=== PATIENT | female | born 1965 | race American Indian/Alaskan Native ===

== ENCOUNTER 2020-01-04 17:17 | Observation (INO) | payer OTHER ==
--- NOTE | 2020-01-04 17:41 | Event Note ---
ED Screening Note ED Screening Note: this morning states she "felt a kick" in her chest states it feels sore mild SOB with walking up the steps +nausea no vomiting no leg swelling took full dose aspirin no recent travel or recent surgery no hormone no hx of cancer PMHx MVP, HLD, prediabetes never smoker rare ETOH use This initial assessment/diagnostic orders/clinical plan/treatment(s) is/are subject to change based on patients health status, clinical progression and re- assessment by fellow clinical providers in the ED. Further treatment and workup at subsequent clinical providers discretion. Patient/guardian urged not to elope from the ED as their condition may be serious if not clinically assessed and managed. Initial orders include: CP protocol
--- NOTE | 2020-01-04 18:07 | XRay Report ---
CHEST 2 VIEWS INDICATION: MAIN: CP SINCE 7 AM THIS MORNING PER PATIENT. COMPARISON: FINDINGS: Support devices: None. Heart: Within normal limits. Lungs: No acute air space or interstitial disease. Pleura: No significant pleural effusion. No pneumothorax. Additional findings: None. IMPRESSION: 1. No acute findings. Signer Name: Semaj Gil MD Signed: 01/04/2020 6:03 PM Workstation Name: [id number]
[2020-01-04 19:11] LABS: Basophils # (Auto) 0.1 K/mm3 (0.0-0.1); Basophils % (Auto) 1.2 % (0.0-1.8); Eosinophils % (Auto) 0.7 % (0.0-4.3); Hemoglobin 12.9 gm/dl (10.1-14.3); Lymphocytes # (Auto) 2.5 K/mm3 (1.2-5.4); Lymphocytes % (Auto) 39.6 % (13.4-35.0); Mean Corpuscular HGB Conc 33 % (30-34); Mean Corpuscular Volume 81 fl (79-97); Monocytes # (Auto) 0.6 K/mm3 (0.0-0.8); Monocytes % (Auto) 9.2 % (0.0-7.3); Platelet Count 265 K/mm3 (140-440); Red Blood Count 4.83 M/mm3 (3.65-5.03); Red Cell Distribution Width 13.9 % (13.2-15.2)
[2020-01-04 19:35] LABS: Alanine Aminotransferase 22 units/L (7-56); Albumin 4.8 g/dL (3.9-5); BUN/Creatinine Ratio 19; Blood Urea Nitrogen 15 mg/dL (7-17); Calcium 9.8 mg/dL (8.4-10.2); Hemolysis Index 11
--- NOTE | 2020-01-04 19:56 | Emergency Department Report ---
ED Chest Pain HPI - General Chief Complaint: Chest Pain Stated Complaint: CP Time Seen by Provider: 01/04/20 17:39 Source: patient, RN notes reviewed, old records reviewed Mode of arrival: Ambulatory Limitations: No Limitations - History of Present Illness Initial Comments: During the entire history and physical examination, I am transplant case manager and escorted by nurse Flavia Rosa Primary care doctor: Dr. Borja, [facility]: [place] [facility] Past medical history: GERD, mitral valve prolapse, hypertension The patient is a 54-year-old female. I have evaluated this patient in the past. Patient presents to the ER today with a primary complaint of chest wall pain. It started at 7:00 in the morning. It started all of a sudden, "like I was kicked in the chest." Prior to this, she denies inciting event. Patient in dicates that prior to this, she was in her usual state of health. She associates nausea, exertional shortness of breath, nontraumatic left posterior tricep pain. All of this is new. The pain has been intermittent since 7:00 in the morning. No recent cardiac stress test or cardiac catheterization that she is aware of. She took aspirin today, and recently. Very strong family history of myocardial infarction, her mother, father, and brother all of myocardial infarction's, at the age of 55, 57, and 53 respectively. There is no complaint of headache, neck pain, abdominal pain, leg pain or leg swelling, or urinary symptoms. She denies DVT and pulmonary embolism risk factors. MD Complaint: chest pain -: Sudden Onset: during rest Pain Location: substernal Pain Radiation: other Quality: aching Consistency: intermittent Improves With: rest Worsens With: exertion, palpation re: nausea, dyspnea Aspirin use within the Past 7 Days: (1) Yes - Related Data On Oral Contraceptives: No Home Medications Medication Instructions Recorded Confirmed Last Taken Aspirin [Aspirin BABY CHEW TAB] 81 mg PO QDAY 07/16/15 07/16/15 12/27/16 Lovastatin [Altoprev] 20 mg PO QAM 07/16/15 07/16/15 12/27/16 Omeprazole (Nf) [PriLOSEC (Nf)] 20 mg PO DAILY 12/29/16 12/29/16 12/27/16 Previous Rx's Medication Instructions Recorded Last Taken Type atenoloL [Tenormin] 25 mg PO DAILY #30 tab 08/22/13 12/29/16 Rx traMADoL [Ultram] 50 mg PO Q6HR PRN #12 tablet 04/22/16 Unknown Rx Diclofenac Sodium [Voltaren] 100 gm TP Q6H #1 gel..gram. 07/19/18 Unknown Rx Allergies Allergy/AdvReac Type Severity Reaction Status Date / Time Penicillins Allergy Hives Verified 07/16/15 18:30 Heart Score - HEART Score History: Moderately suspicious EKG: Non-specific Age: 45-65 Risk factors: > 3 risk factors or hx of atherosclerotic disease Troponin: < normal limit HEART Score: 5 - Critical Actions Critical Actions: 4-6 pts:12-16.6% risk of adverse cardiac event. Should be admitted ED Review of Systems ROS: Stated complaint: CP Other details as noted in HPI Constitutional: malaise. denies: fever Eyes: denies: eye discharge ENT: denies: congestion Respiratory: shortness of breath Cardiovascular: chest pain Gastrointestinal: vomiting Genitourinary: denies: dysuria Musculoskeletal: myalgia Skin: denies: lesions Neurological: weakness Psychiatric: as per HPI Hematological/Lymphatic: as per HPI ED Past Medical Hx - Past Medical History Previous Medical History?: Yes Hx Hypertension: (high cholesterol) Hx GERD: Yes Hx Kidney Stones: Yes Additional medical history: MVP, high cholestrol - Surgical History Additional Surgical History: Hysterectomy. C section - Social History Smoking Status: Never Smoker Substance Use Type: None - Medications Home Medications: Home Medications Medication Instructions Recorded Confirmed Last Taken Type atenoloL [Tenormin] 25 mg PO DAILY #30 tab 08/22/13 07/16/15 12/29/16 Rx Aspirin [Aspirin BABY CHEW TAB] 81 mg PO QDAY 07/16/15 07/16/15 12/27/16 History Lovastatin [Altoprev] 20 mg PO QAM 07/16/15 07/16/15 12/27/16 History traMADoL [Ultram] 50 mg PO Q6HR PRN #12 tablet 04/22/16 Unknown Rx Omeprazole (Nf) [PriLOSEC (Nf)] 20 mg PO DAILY 12/29/16 12/29/16 12/27/16 His tory Diclofenac Sodium [Voltaren] 100 gm TP Q6H #1 gel..gram. 07/19/18 Unknown Rx ED Physical Exam - General Limitations: No Limitations General appearance: alert, in no apparent distress - Head Head exam: Present: atraumatic, normocephalic - Eye Eye exam: Present: normal appearance, EOMI. Absent: nystagmus - ENT ENT exam: Present: normal exam, normal orophraynx, mucous membranes moist, normal external ear exam - Neck Neck exam: Present: normal inspection, full ROM. Absent: tenderness, meningismus - Respiratory Respiratory exam: Present: normal lung sounds bilaterally, chest wall tenderness. Absent: respiratory distress, wheezes, rales, rhonchi, stridor - Cardiovascular Cardiovascular Exam: Present: normal rhythm, bradycardia, normal heart sounds. Absent: tachycardia, irregular rhythm, systolic murmur, diastolic murmur, rubs, gallop - GI/Abdominal GI/Abdominal exam: Present: soft. Absent: distended, tenderness, guarding, rebound, rigid, pulsatile mass - Extremities Exam Extremities exam: Present: normal inspection, full ROM, other (2+ pulses noted in the bilateral upper and lower extremities. There is no palpable cord. negative Homans sign. Muscular compartments are soft. The pelvis is stable.). Absent: pedal edema, calf tenderness - Back Exam Back exam: Present: normal inspection. Absent: tenderness, CVA tenderness (R), CVA tenderness (L), paraspinal tenderness, vertebral tenderness - Neurological Exam Neurological exam: Present: alert, normal gait, other (There is no facial droop. The tongue is midline. Extraocular movements are intact bilaterally. There is 5 out of 5 strength in bilateral upper and lower extremities. Sensation is intact to light touch bilateral upper and lower extremities. ). Absent: motor sensory deficit - Psychiatric Psychiatric exam: Present: anxious - Skin Skin exam: Present: warm, dry, intact, normal color. Absent: rash ED Course Vital Signs 01/04/20 01/04/20 01/04/20 17:20 17:40 20:30 Temperature 98.1 F 98 F Pulse Rate 59 L 59 L 54 L Respiratory 18 18 12 Rate Blood Pressure 136/69 143/59 Blood Pressure 136/69 [Left] O2 Sat by Pulse 100 100 100 Oximetry 01/04/20 20:45 Temperature Pulse Rate 57 L Respiratory 13 Rate Blood Pressure 137/68 Blood Pressure [Left] O2 Sat by Pulse 98 Oximetry - Reevaluation(s) Reevaluation #1: 01/04/20 20:54 Differential diagnosis, including but not limited to: Costochondritis, acute coronary syndrome, GERD, gastritis, hiatal hernia, acute coronary syndrome, pulmonary embolism Assessment and plan: 54-year-old female with exquisitely reproducible chest wall pain, however, multiple vascular risk factors, including hypertension, high cholesterol, and very strong family history. She cannot recall a dedicated cardiac risk ratification test performed recently, although she does indicate that in 2019, she had "some kind of test done." We will treat her symptoms, obtain d-dimer, repeat EKG, and reassess. We will likely admit the patient to the medical service for an accelerated cardiac risk stratification, given very strong family history. Reevaluation #2: 01/04/20 21:43 Patient feels improved. Repeat EKG unchanged. Troponin negative. X2. D-dimer negative. Given moderate risk as per heart score, patient meets criteria for hospitalization for accelerated cardiac risk ratification. Discussed this with patient and family, who verbalized understanding. They are amenable to this plan of care. We will discussed with her primary medical or surgical instrument maker. We will admit to the medical service. Reevaluation #3: 01/04/20 22:00 Dr Doris Stone to admit - Consultations Consultation #1: 01/04/20 21:59 Discussed with covering cardiology, Dr. Doris Mcgill, who agrees with plan of care, indicates his group can see the patient in the morning in consultation. HAMMAD score - Hammad Score Age > 65: (0) No Aspirin use within the Past 7 Days: (1) Yes 3 or more CAD Risk Factors: (1) Yes 2 or more Angina events in past 24 hrs: (0) No Known CAD with more than 50% Stenosis: (0) No Elevated Cardiac Markers: (0) No ST Deviation Greater than 0.5mm: (0) No HAMMAD Score: 2 ED Medical Decision Making - Lab Data Result diagrams: 01/04/20 18:48 01/04/20 18:48 Vital Signs 01/04/20 01/04/20 01/04/20 17:20 17:40 20:30 Temperature 98.1 F 98 F Pulse Rate 59 L 59 L 54 L Respiratory 18 18 12 Rate Blood Pressure 136/69 143/59 Blood Pressure 136/69 [Left] O2 Sat by Pulse 100 100 100 Oximetry 01/04/20 20:45 Temperature Pulse Rate 57 L Respiratory 13 Rate Blood Pressure 137/68 Blood Pressure [Left] O2 Sat by Pulse 98 Oximetry Lab Results 01/04/20 01/04/20 Range/Units 18:48 18:48 WBC 6.2 (4.5-11.0) K/mm3 RBC 4.83 (3.65-5.03) M/mm3 Hgb 12.9 (10.1-14.3) gm/dl Hct 39.0 (30.3-42.9) % MCV 81 (79-97) fl MCH 27 L (28-32) pg MCHC 33 (30-34) % RDW 13.9 (13.2-15.2) % Plt Count 265 (140-440) K/mm3 Lymph % (Auto) 39.6 H (13.4-35.0) % [place] % (Auto) 9.2 H (0.0-7.3) % Eos % (Auto) 0.7 (0.0-4.3) % Baso % (Auto) 1.2 (0.0-1.8) % Lymph # 2.5 (1.2-5.4) K/mm3 [place] # 0.6 (0.0-0.8) K/mm3 Eos # 0.0 (0.0-0.4) K/mm3 Baso # 0.1 (0.0-0.1) K/mm3 Seg Neutrophils % 49.3 (40.0-70.0) % Seg Neutrophils # 3.1 (1.8-7.7) K/mm3 Sodium 147 H (137-145) mmol/L Potassium 3.7 (3.6-5.0) mmol/L Chloride 106.0 (98-107) mmol/L Carbon Dioxide 26 (22-30) mmol/L Anion Gap 19 mmol/L BUN 15 (7-17) mg/dL Creatinine 0.8 (0.7-1.2) mg/dL Estimated GFR > 60 ml/min BUN/Creatinine Ratio 19 % Glucose 86 (65-100) mg/dL Calcium 9.8 (8.4-10.2) mg/dL Total Bilirubin 0.30 (0.1-1.2) mg/dL AST 21 (5-40) units/L ALT 22 (7-56) units/L Alkaline Phosphatase 97 (35-129) units/L Troponin T < 0.010 (0.00-0.029) ng/mL NT-Pro-B Natriuret Pep 62.95 (0-900) pg/mL Total Protein 7.5 (6.3-8.2) g/dL Albumin 4.8 (3.9-5) g/dL Albumin/Globulin Ratio 1.8 % - EKG Data -: EKG Interpreted by Me - EKG Data 01/04/20 20:53 EKG #1 shows sinus rhythm, bradycardia, 58 bpm, normal axis, QTC within normal limits, left ventricular hypertrophy, nonspecific ST abnormality lead II, III, aVF, V4, V5 and V6, there is also an inverted T wave in V3. Appears to be fairly similar to prior EKG from 07/2015 - Radiology Data Radiology results: report reviewed, image reviewed X-ray of the chest is negative for acute disease Critical care attestation.: If time is entered above; I have spent that time in minutes in the direct care of this critically ill patient, excluding procedure time. ED Disposition Clinical Impression: Acute chest pain, Dyspnea Disposition: OP ADMIT IP TO THIS HOSP Is pt being admited?: Yes Does the pt Need Aspirin: Yes Condition: Stable Instructions: Chest Pain (ED) Referrals: DENA SINGLETON MD [Primary Care Provider] - 3-5 Days
[2020-01-04] MEDS ORDERED: FAMOTIDINE 20 MG/2 ML INJ IV ONE (20:11)
[2020-01-04] MEDS ORDERED: KETOROLAC 30 MG/1 ML INJ IV ONE (20:11)
[2020-01-04] MEDS ORDERED: ACETAMINOPHEN 500 MG TAB PO ONE (20:12)
[2020-01-04] MEDS ORDERED: ASPIRIN 81 MG TAB CHEW PO ONE (21:45)
[2020-01-04] MEDS ORDERED: MORPHINE 4 MG/1 ML INJ IV PRN (22:55)
[2020-01-04] MEDS ORDERED: MORPHINE 2 MG/1 ML INJ IV PRN (22:55)
[2020-01-04] MEDS ORDERED: MAGNESIUM HYDROXIDE (MOM) ORAL LIQD UDC PO PRN (22:55)
[2020-01-04] MEDS ORDERED: ONDANSETRON 4 MG/2 ML INJ IV PRN (22:55)
[2020-01-04] MEDS ORDERED: ACETAMINOPHEN 325 MG TAB PO PRN (22:55)
--- NOTE | 2020-01-04 23:13 | History and Physical Report ---
History of Present Illness Date of examination: 01/04/20 Date of admission: 01/04/2020 Chief complaint: Chest Pain History of present illness: 54-year-old female presenting to the emergency room today complaining of sudden onset of midsternal chest pain. She had associated shortness of breath, nausea during this episode. Pain is said to be intermittent and started this morning. She denies any fever or chills, no headache or dizziness. There is no no relieving or exacerbating factor for her chest pain and she indicates that she had taken some aspirin earlier in the morning without any significant changes. Pain is said to radiate towards the left upper extremity. Patient admits that she has a strong family history of myocardial infarction her parents and brother had myocardial infarction in their 50s. Patient has not had any cardiac work-up recently. Past History Past Medical History: hypertension, hyperlipidemia, other (Mitral valve prolapse) Past Surgical History: , hysterectomy Social history: no significant social history Family history: CAD (History of [place] in both parents) Medications and Allergies Allergies Allergy/AdvReac Type Severity Reaction Status Date / Time Penicillins Allergy Hives Verified 07/16/15 18:30 Home Medications Medication Instructions Recorded Confirmed Last Taken Type atenoloL [Tenormin] 25 mg PO DAILY #30 tab 08/22/13 01/05/20 01/04/20 08:00 Rx Aspirin [Aspirin BABY CHEW TAB] 81 mg PO QDAY 07/16/15 01/05/20 01/04/20 08:00 History 325 hydroCHLOROthiazide [HCTZ] 25 mg PO QDAY 01/04/20 01/05/20 01/04/20 08:00 History Atorvastatin 40 mg PO QDAY 01/05/20 01/05/20 01/04/20 08:00 History Active Meds: Active Medications Acetaminophen (Tylenol) 650 mg PO Q4H PRN PRN Reason: Pain MILD(1-3)/Fever >100.5/LOCKHART Aspirin (Ecotrin) 325 mg PO QDAY JESSICA Magnesium Hydroxide (Milk Of Magnesia) 30 ml PO Q4H PRN PRN Reason: Constipation Morphine Sulfate (Morphine) 2 mg IV Q4H PRN PRN Reason: Pain, Moderate (4-6) Morphine Sulfate (Morphine) 2 mg IV Q5MIN PRN PRN Reason: Chest Pain Ondansetron HCl (Zofran) 4 mg IV Q8H PRN PRN Reason: Nausea And Vomiting Sodium Chloride (Sodium Chloride Flush Syringe 10 Ml) 10 ml IV BID JESSICA Sodium Chloride (Sodium Chloride Flush Syringe 10 Ml) 10 ml IV PRN PRN PRN Reason: LINE FLUSH Sodium Chloride (Sodium Chloride Flush Syringe 10 Ml) 10 ml IV PRN PRN PRN Reason: LINE FLUSH Review of Systems Constitutional: no fever, no chills Cardiovascular: chest pain, no orthopnea, no palpitations Respiratory: no cough Genitourinary Female: hematuria, no dysuria Integumentary: no rash, no pruritis Neurological: no headaches, no change in mentation Exam - Constitutional Vitals: Temp Pulse Resp BP Pulse Ox 98 F 57 L 13 137/68 98 01/04/20 17:40 01/04/20 20:45 01/04/20 20:45 01/04/20 20:45 01/04/20 20:45 General appearance: Present: no acute distress, well-nourished - EENT Eyes: Present: PERRL, EOM intact ENT: hearing intact, clear oral mucosa, dentition normal - Neck Neck: Present: supple, normal ROM - Respiratory Respiratory effort: normal Respiratory: bilateral: CTA - Cardiovascular Rhythm: regular Heart Sounds: Present: S1 & S2 - Extremities Extremities: no ischemia, pulses intact, No edema, Full ROM Peripheral Pulses: within normal limits - Abdominal General gastrointestinal: Present: soft, non-tender, non-distended, normal bowel sounds - Integumentary Integumentary: Present: clear, warm, dry - Musculoskeletal Musculoskeletal: strength equal bilaterally - Psychiatric Psychiatric: appropriate mood/affect, intact judgment & insight, cooperative - Neurologic Neurologic: CNII-XII intact, moves all extremities Results - Labs CBC & Chem 7: 01/04/20 23:08 01/04/20 23:08 Labs: Abnormal lab results 01/04/20 01/04/20 01/04/20 Range/Units 18:48 18:48 20:48 MCH 27 L (28-32) pg Lymph % (Auto) 39.6 H (13.4-35.0) % [place] % (Auto) 9.2 H (0.0-7.3) % Sodium 147 H (137-145) mmol/L Total Creatine Kinase 265 H (30-135) units/L Assessment and Plan - Patient Problems (1) Acute chest pain Current Visit: Yes Status: Acute Plan to address problem: Admit patient and placed on telemetry. Will check serial cardiac enzymes. Patient is placed on daily aspirin, sublingual nitroglycerin and IV morphine as needed for chest pain. She will be scheduled for stress test. (2) Hypertension Current Visit: Yes Status: Acute Plan to address problem: We will resume routine home medications and monitor vital signs closely (3) Hyperlipidemia Current Visit: Yes Status: Acute Plan to address problem: We will resume routine home medication monitor lipid profile. (4) DVT prophylaxis Current Visit: Yes Status: Acute Plan to address problem: Patient placed on subcutaneous heparin. (5) Full code status Current Visit: Yes Status: Acute
[2020-01-04 23:52] LABS: Basophils % (Auto) 0.2 % (0.0-1.8); Eosinophils # (Auto) 0.1 K/mm3 (0.0-0.4); Eosinophils % (Auto) 0.8 % (0.0-4.3); Hematocrit 36.4 % (30.3-42.9); Hemoglobin 11.9 gm/dl (10.1-14.3); Lymphocytes # (Auto) 2.8 K/mm3 (1.2-5.4); Lymphocytes % (Auto) 43.1 % (13.4-35.0); Mean Corpuscular HGB Conc 33 % (30-34); Mean Corpuscular Volume 81 fl (79-97); Monocytes # (Auto) 0.4 K/mm3 (0.0-0.8); Monocytes % (Auto) 6.3 % (0.0-7.3); Platelet Count 242 K/mm3 (140-440); Red Blood Count 4.47 M/mm3 (3.65-5.03); Red Cell Distribution Width 13.7 % (13.2-15.2)
[2020-01-05 00:12] LABS: BUN/Creatinine Ratio 20; Blood Urea Nitrogen 14 mg/dL (7-17); Calcium 9.3 mg/dL (8.4-10.2); Hemolysis Index 0
[2020-01-05 07:07] LABS: Basophils % (Auto) 0.9 % (0.0-1.8); Eosinophils % (Auto) 0.6 % (0.0-4.3); Lymphocytes # (Auto) 2.6 K/mm3 (1.2-5.4); Lymphocytes % (Auto) 48.6 % (13.4-35.0); Mean Corpuscular HGB Conc 33 % (30-34); Mean Corpuscular Volume 80 fl (79-97); Monocytes # (Auto) 0.4 K/mm3 (0.0-0.8); Monocytes % (Auto) 7.7 % (0.0-7.3); Platelet Count 271 K/mm3 (140-440); Red Blood Count 4.86 M/mm3 (3.65-5.03); Red Cell Distribution Width 13.7 % (13.2-15.2)
[2020-01-05 07:21] LABS: Partial Thromboplastin Time 33.3 Sec. (24.2-36.6)
[2020-01-05 07:28] LABS: BUN/Creatinine Ratio 20; Blood Urea Nitrogen 14 mg/dL (7-17); Calcium 9.5 mg/dL (8.4-10.2); Hemolysis Index 2
[2020-01-05] MEDS: atenoloL 25 MG TAB PO SCH (12:05)
[2020-01-05] MEDS: hydroCHLOROthiazide 25 MG TAB PO SCH (12:06)
[2020-01-05] MEDS: ASPIRIN EC 325 MG TAB PO SCH (12:06)
--- NOTE | 2020-01-05 14:24 | Consultation ---
History of Present Illness Consult date: 01/05/20 Consult reason: chest pain History of present illness: 54 YO woman presented to ED with mid and left sided chest pain. She descibes a cramping type of pain with associated dyspnea and nausea. Pain happens intermittently and is not exacerbated with exertion. She has not had any episodes of syncope or pre-synocpe. She was previously evaluated in our office due to atypical chest pain. Exercise treadmill stress test in 12/2016 [place] [id number] revealed normal EF with mild MR. She has family history of premature CAD. Past History Past Medical History: hypertension, hyperlipidemia Past Surgical History: , hysterectomy Social history: no significant social history Family history: CAD (History of [place] in both parents) Medications and Allergies Allergies Allergy/AdvReac Type Severity Reaction Status Date / Time Penicillins Allergy Hives Verified 07/16/15 18:30 Home Medications Medication Instructions Recorded Confirmed Last Taken Type atenoloL [Tenormin] 25 mg PO DAILY #30 tab 08/22/13 01/05/20 01/04/20 08:00 Rx Aspirin [Aspirin BABY CHEW TAB] 81 mg PO QDAY 07/16/15 01/05/20 01/04/20 08:00 History 325 hydroCHLOROthiazide [HCTZ] 25 mg PO QDAY 01/04/20 01/05/20 01/04/20 08:00 History Atorvastatin 40 mg PO QDAY 01/05/20 01/05/20 01/04/20 08:00 History Active Meds: Active Medications Acetaminophen (Tylenol) 650 mg PO Q4H PRN PRN Reason: Pain MILD(1-3)/Fever >100.5/LOCKHART Aspirin (Ecotrin) 325 mg PO QDAY [facility] Last Admin: 01/05/20 12:06 Dose: 325 mg Documented by: Atenolol (Tenormin) 25 mg PO DAILY [facility] Last Admin: 01/05/20 12:05 Dose: 25 mg Documented by: Atorvastatin Calcium (Lipitor) 40 mg PO QHS [facility] Heparin Sodium (Porcine) (Heparin) 5,000 unit SUB-Q Q8HR [facility] Hydrochlorothiazide (Hctz) 25 mg PO QDAY [facility] Last Admin: 01/05/20 12:06 Dose: 25 mg Documented by: Magnesium Hydroxide (Milk Of Magnesia) 30 ml PO Q4H PRN PRN Reason: Constipation Morphine Sulfate (Morphine) 2 mg IV Q4H PRN PRN Reason: Pain, Moderate (4-6) Morphine Sulfate (Morphine) 2 mg IV Q5MIN PRN PRN Reason: Chest Pain Ondansetron HCl (Zofran) 4 mg IV Q8H PRN PRN Reason: Nausea And Vomiting Sodium Chloride (Sodium Chloride Flush Syringe 10 Ml) 10 ml IV BID JESSICA Last Admin: 01/05/20 12:06 Dose: 10 ml Documented by: Sodium Chloride (Sodium Chloride Flush Syringe 10 Ml) 10 ml IV PRN PRN PRN Reason: LINE FLUSH Review of Systems All systems: negative (per hpi) Physical Examination Vital Signs Temp Pulse Resp BP Pulse Ox 98.1 F 59 L 18 136/69 100 01/04/20 17:20 01/04/20 17:20 01/04/20 17:20 01/04/20 17:20 01/04/20 17:20 General appearance: no acute distress HEENT: Positive: EOMI Neck: Positive: neck supple Cardiac: Positive: Regular Rate. Negative: Systolic Murmur Lungs: Positive: clear to auscultation Abdomen: Positive: Soft, Active Bowel Sounds Extremities: Absent: edema Results 01/05/20 06:41 01/05/20 06:41 Cardiac Enzymes 01/04/20 Range/Units 18:48 AST 21 (5-40) units/L Coagulation 01/05/20 Range/Units 06:41 PT 13.3 (12.2-14.9) Sec. INR 1.00 (0.87-1.13) APTT 33.3 (24.2-36.6) Sec. CBC 01/04/20 01/04/20 01/05/20 Range/Units 18:48 23:08 06:41 WBC 6.2 6.5 5.3 (4.5-11.0) K/mm3 RBC 4.83 4.47 4.86 (3.65-5.03) M/mm3 Hgb 12.9 11.9 13.0 (10.1-14.3) gm/dl Hct 39.0 36.4 39.0 (30.3-42.9) % Plt Count 265 242 271 (140-440) K/mm3 Lymph # 2.5 2.8 2.6 (1.2-5.4) K/mm3 [place] # 0.6 0.4 0.4 (0.0-0.8) K/mm3 Eos # 0.0 0.1 0.0 (0.0-0.4) K/mm3 Baso # 0.1 0.0 0.0 (0.0-0.1) K/mm3 Comprehensive Metabolic Panel 01/04/20 01/04/20 01/05/20 Range/Units 18:48 23:08 06:41 Sodium 147 H 144 144 (137-145) mmol/L Potassium 3.7 3.5 L 3.8 (3.6-5.0) mmol/L Chloride 106.0 103.7 104.4 (98-107) mmol/L Carbon Dioxide 26 25 24 (22-30) mmol/L BUN 15 14 14 (7-17) mg/dL Creatinine 0.8 0.7 0.7 (0.7-1.2) mg/dL Glucose 86 132 H 123 H (65-100) mg/dL Calcium 9.8 9.3 9.5 (8.4-10.2) mg/dL AST 21 (5-40) units/L ALT 22 (7-56) units/L Alkaline Phosphatase 97 (35-129) units/L Total Protein 7.5 (6.3-8.2) g/dL Albumin 4.8 (3.9-5) g/dL Assessment and Plan 1. Atypical chest pain 2. Htn Recommend: MPI tomorrow.
[2020-01-05] MEDS: HEPARIN 5,000 UNIT/1 ML VIAL SUB-Q SCH ×2 (15:53→22:46)
--- NOTE | 2020-01-05 16:37 | Progress Note ---
Assessment and Plan (1) Acute chest pain Current Visit: Yes Status: Acute Plan to address problem: Admit patient and placed on telemetry. Will check serial cardiac enzymes. Patient is placed on daily aspirin, sublingual nitroglycerin and IV morphine as needed for chest pain. She will be scheduled for stress test tomorrow (2) Hypertension Current Visit: Yes Status: Acute Plan to address problem: We will resume routine home medications and monitor vital signs closely (3) Hyperlipidemia Current Visit: Yes Status: Acute Plan to address problem: We will resume routine home medication monitor lipid profile. (4) DVT prophylaxis Current Visit: Yes Status: Acute Plan to address problem: Patient placed on subcutaneous heparin. (5) Full code status Current Visit: Yes Status: Acute ROQUE score Age > 65: (0) No Aspirin use within the Past 7 Days: (1) Yes 3 or more CAD Risk Factors: (1) Yes 2 or more Angina events in past 24 hrs: (0) No Known CAD with more than 50% Stenosis: (0) No Elevated Cardiac Markers: (0) No ST Deviation Greater than 0.5mm: (0) No ROQUE Score: 2 Subjective Date of service: 01/05/20 Interval history: Patient seen and examined denies any chest pain now plan for stress test tomorrow Objective - Constitutional Vitals: Vital Signs - 12hr 01/05/20 01/05/20 01/05/20 09:36 12:05 13:00 Temperature 98.3 F Pulse Rate 64 61 Respiratory 18 18 Rate Blood Pressure 122/73 O2 Sat by Pulse 100 Oximetry 01/05/20 15:34 Temperature Pulse Rate 61 Respiratory Rate Blood Pressure O2 Sat by Pulse Oximetry General appearance: Present: no acute distress, obese - EENT Eyes: PERRL, EOM intact ENT: hearing intact, clear oral mucosa Ears: bilateral: normal - Neck Neck: supple, normal ROM - Respiratory Respiratory effort: normal Respiratory: bilateral: CTA - Cardiovascular Rhythm: regular Heart Sounds: Present: S1 & S2. Absent: gallop, rub Extremities: pulses intact, No edema, normal color, Full ROM - Gastrointestinal General gastrointestinal: Present: soft, non-tender, non-distended, normal bowel sounds - Integumentary Integumentary: clear, warm, dry - Musculoskeletal Musculoskeletal: 1, strength equal bilaterally - Neurologic Neurologic: moves all extremities - Psychiatric Psychiatric: memory intact, appropriate mood/affect, intact judgment & insight - Labs CBC & Chem 7: 01/05/20 06:41 01/05/20 06:41 Labs: Abnormal lab results 01/04/20 01/04/20 01/04/20 Range/Units 18:48 18:48 20:48 MCH 27 L (28-32) pg Lymph % (Auto) 39.6 H (13.4-35.0) % Alfalfa % (Auto) 9.2 H (0.0-7.3) % Sodium 147 H (137-145) mmol/L Potassium (3.6-5.0) mmol/L Glucose (65-100) mg/dL Total Creatine Kinase 265 H (30-135) units/L 01/04/20 01/04/20 01/05/20 Range/Units 23:08 23:08 06:41 MCH 27 L 27 L (28-32) pg Lymph % (Auto) 43.1 H 48.6 H (13.4-35.0) % [place] % (Auto) 7.7 H (0.0-7.3) % Sodium (137-145) mmol/L Potassium 3.5 L (3.6-5.0) mmol/L Glucose 132 H (65-100) mg/dL Total Creatine Kinase (30-135) units/L 01/05/20 Range/Units 06:41 MCH (28-32) pg Lymph % (Auto) (13.4-35.0) % [place] % (Auto) (0.0-7.3) % Sodium (137-145) mmol/L Potassium (3.6-5.0) mmol/L Glucose 123 H (65-100) mg/dL Total Creatine Kinase (30-135) units/L
[2020-01-06] MEDS: HEPARIN 5,000 UNIT/1 ML VIAL SUB-Q SCH (05:26)
[2020-01-06] MEDS ORDERED: REGADENOSON 0.4 MG/5 ML INJ IV ONE (06:51)
[2020-01-06] MEDS: ASPIRIN EC 325 MG TAB PO SCH (11:03)
[2020-01-06] MEDS: atenoloL 25 MG TAB PO SCH (11:03)
[2020-01-06] MEDS: hydroCHLOROthiazide 25 MG TAB PO SCH (11:04)
--- NOTE | 2020-01-06 11:08 | Progress Note ---
Assessment and Plan - Patient Problems (1) Chest pain Current Visit: Yes Status: Acute Plan to address problem: Chest pain is atypical, serial ECGs and cardiac enzymes are negative, exercise treadmill test with thallium images pending. Subjective Date of service: 01/06/20 Interval history: The patient underwent an exercise thallium stress test during which she exercise d for 9 minutes of a Fadi protocol, completing stage III and achieving 10METS. There was no chest pain, no ST changes of ischemia. Very good exercise tolerance. Thallium images are pending. Objective Vital Signs Temp Pulse Resp BP Pulse Ox 01/06/20 11:03 77 01/06/20 09:59 130/77 01/06/20 09:57 117/71 01/06/20 09:56 135/70 01/06/20 09:54 168/79 01/06/20 08:50 112/70 01/06/20 04:22 98.3 F 61 18 116/67 99 01/06/20 00:38 18 98 01/05/20 23:50 98.3 F 56 L 18 99/56 99 01/05/20 19:32 71 01/05/20 19:28 98.1 F 63 18 117/57 98 01/05/20 16:42 98.5 F 62 18 124/72 98 01/05/20 15:34 61 01/05/20 13:00 18 01/05/20 12:05 61 - Physical Examination General: No Apparent Distress HEENT: Positive: EOMI Neck: Positive: neck supple Cardiac: Positive: Reg Rate and Rhythm Lungs: Positive: clear to auscultation Neuro: Positive: Grossly Intact Abdomen: Positive: Soft, Active Bowel Sounds Skin: Positive: Clear Extremities: Absent: edema
[2020-01-06 12:25] VITALS: BP 110/65
--- NOTE | 2020-01-06 13:38 | Treadmill Report ---
THALLIUM STRESS TEST LEFT VENTRICLE: Left ventricular chamber size is within normal spread. Perfusion study demonstrates homogeneous uptake of the tracer in all segments, no significant defects identified. Normal apical thinning is noted. Gated analysis demonstrates normal left ventricular systolic function, ejection fraction 55%. CONCLUSION: Normal myocardial perfusion study. JOB# [id number] CA/NTS
--- NOTE | 2020-01-06 13:42 | Discharge Summary ---
Providers - Providers Date of Admission: 01/04/20 22:55 Date of discharge: 01/06/20 Attending physician: FLORENTIN MOSELEY 01/04/20 Consult to Cardiac Rehabilitation [CONS] Routine Reason For Exam: Phase I 01/04/20 21:44 Consult to Physician [CONS] Urgent Comment: Dr. Bullock spoke with Dr. Mcgill @ [phone] Consulting Provider: ROBERT HAMLIN Physician Instructions: Reason For Exam: cp Primary care physician: [facility] MD DENYS Hospitalization Condition: Stable Pertinent studies: CXR Stress test Hospital course: Discharge diagnosis: (1) Acute chest pain Atypical, likely GERD s/p stress test (2) Hypertension Resume routine home medications and monitored vital signs closely (3) Hyperlipidemia Resume routine home medication monitor lipid profile. (4) DVT prophylaxis Patient placed on subcutaneous heparin. (5) Full code status Current Visit: Yes Status: Acute Disposition: DC-01 TO HOME OR SELFCARE Time spent for discharge: 34 minutes Core Measure Documentation - Palliative Care Palliative Care/ Comfort Measures: Not Applicable - Core Measures Any of the following diagnoses?: none Exam - Constitutional Vitals: Temp Pulse Resp BP Pulse Ox 98.0 F 78 18 110/65 98 01/06/20 12:16 01/06/20 12:16 01/06/20 12:36 01/06/20 12:16 01/06/20 12:36 General appearance: Present: no acute distress, well-nourished - EENT Eyes: Present: PERRL ENT: hearing intact, clear oral mucosa - Neck Neck: Present: supple, normal ROM - Respiratory Respiratory effort: normal Respiratory: bilateral: CTA - Cardiovascular Heart Sounds: Present: S1 & S2. Absent: rub, click - Extremities Extremities: pulses symmetrical, No edema Peripheral Pulses: within normal limits - Abdominal General gastrointestinal: Present: soft, non-tender, non-distended, normal bowel sounds - Integumentary Integumentary: Present: clear, warm, dry - Musculoskeletal Musculoskeletal: gait normal, strength equal bilaterally - Psychiatric Psychiatric: appropriate mood/affect, intact judgment & insight - Neurologic Neurologic: CNII-XII intact, moves all extremities Plan Activity: advance as tolerated Weight Bearing Status: Weight Bear as Tolerated Diet: low fat, low salt Follow up with: DENA SINGLETON MD [Primary Care Provider] - 3-5 Days Prescriptions: Pantoprazole [Protonix] 40 mg PO QDAY #30 tablet
== END 2020-01-06 18:38 | disposition home or self-care (01) ==
LOC: ED 17:17 → 4A 22:55
PROVIDERS: ADMIT Internal Medicine Geriatric Medicine; ATTEND Internal Medicine
DX: R07.89 Other chest pain (principal); I10 Essential (primary) hypertension; E78.5 Hyperlipidemia, unspecified; E78.00 Pure hypercholesterolemia, unspecified; K21.9 Gastro-esophageal reflux disease without esophagitis; Z87.442 Personal history of urinary calculi; Z90.710 Acquired absence of both cervix and uterus; Z79.899 Other long term (current) drug therapy; Z88.0 Allergy status to penicillin
CPT/HCPCS: 36415; 71046; 78452; 80048; 80053; 82550; 83735; 83880; 84484; 85025; 85379; 85610; 85730; 93005; 93010; 93017; 93306; 96372; 96374; 96375; 99285; A9270; A9502; G0378; J1644; J1885; J2785

== ENCOUNTER 2021-03-08 22:06 | Emergency (ER) | payer OTHER | END 2021-03-08 22:30 | disposition left against medical advice (07) | LOC: ED 22:06 | DX: R11.0 Nausea (principal); R51.9 Headache, unspecified; Z53.21 Procedure and treatment not carried out due to patient leaving prior to being seen by health care provider ==

== ENCOUNTER 2022-03-31 20:21 | Emergency (ER) | payer OTHER ==
[2022-04-01 03:33] LABS: Basophils # (Auto) 0.1 K/mm3 (0.0-0.1); Eosinophils # (Auto) 0.1 K/mm3 (0.0-0.4); Eosinophils % (Auto) 0.8 % (0.0-4.3); Hematocrit 34.8 % (30.3-42.9); Hemoglobin 11.4 gm/dl (10.1-14.3); Lymphocytes # (Auto) 2.2 K/mm3 (1.2-5.4); Mean Corpuscular HGB Conc 33 % (30-34); Mean Corpuscular Volume 80 fl (79-97); Monocytes # (Auto) 0.7 K/mm3 (0.0-0.8); Monocytes % (Auto) 9.7 % (0.0-7.3); Platelet Count 310 K/mm3 (140-440); Red Blood Count 4.35 M/mm3 (3.65-5.03); Red Cell Distribution Width 13.7 % (13.2-15.2)
[2022-04-01 03:48] LABS: Bilirubin,Urine NEG (Negative); Blood,Urine SM (Negative); Color,Urine Yellow (Yellow); Mucus,Urine FEW /HPF; Protein,Urine <15 mg/dL mg/dL (Negative); Urobilinogen,Urine < 2.0 mg/dL (<2.0)
--- NOTE | 2022-04-01 03:49 | XRay Report ---
XR chest routine 2V INDICATION / CLINICAL INFORMATION: flank pain ches pain. COMPARISON: 01/04/2020. FINDINGS: SUPPORT DEVICES: None. HEART /PULMONARY VASCULATURE: No significant abnormality. LUNGS / PLEURA: No significant pulmonary or pleural abnormality. No pneumothorax. ADDITIONAL FINDINGS: No significant additional findings. IMPRESSION: 1. No acute findings. Signer Name: Jai Fox MD Signed: 04/01/2022 3:45 AM Workstation Name: [id number]
[2022-04-01 04:01] LABS: Alanine Aminotransferase 20 units/L (7-56); Albumin 4.4 g/dL (3.9-5); Blood Urea Nitrogen 10 mg/dL (7-17); Calcium 9.8 mg/dL (8.4-10.2); Hemolysis Index 19
[2022-04-01 04:04] LABS: BUN/Creatinine Ratio 17
[2022-04-01 04:09] LABS: INR 0.82 (0.87-1.13)
[2022-04-01 04:10] LABS: Partial Thromboplastin Time 28.1 Sec. (24.2-36.6)
--- NOTE | 2022-04-01 04:33 | Emergency Department Report ---
ED General Adult HPI - General Chief complaint: Dyspnea/Respdistress Stated complaint: CHECK FOR BLOOD CLOT Time Seen by Provider: 04/01/22 04:11 Source: patient Mode of arrival: Ambulatory Limitations: No Limitations - History of Present Illness Initial comments: Patient 56-year-old female who presents for cough shortness of breath for 1- month. Seen by PCP Dr. Diego advised to present to ED for rule out DVT left lower extremity secondary to lower extremity swelling and pain. Patient denies shortness of breath chest pain dizziness lightheadedness or nausea vomiting there is been no suspicious travel or prolonged immobility. Patient has no history of DVT or PE. There is been no fevers or chills no productive cough. She is COVID vaccinated. - Related Data Home Medications Medication Instructions Recorded Confirmed Last Taken Aspirin [Aspirin BABY CHEW TAB] 81 mg PO QDAY 07/16/15 01/05/20 01/04/20 08:00 325 hydroCHLOROthiazide [HCTZ] 25 mg PO QDAY 01/04/20 01/05/20 01/04/20 08:00 Atorvastatin 40 mg PO QDAY 01/05/20 01/05/20 01/04/20 08:00 Previous Rx's Medication Instructions Recorded Last Taken Type atenoloL [Tenormin] 25 mg PO DAILY #30 tab 08/22/13 01/04/20 08:00 Rx Pantoprazole [Protonix] 40 mg PO QDAY #30 tablet 01/06/20 Unknown Rx Acetaminophen [Tylenol] 650 mg PO Q6H PRN #60 cap 04/01/22 Unknown Rx Allergies Allergy/AdvReac Type Severity Reaction Status Date / Time Penicillins Allergy Hives Verified 07/16/15 18:30 ED Review of Systems ROS: Stated complaint: CHECK FOR BLOOD CLOT Other details as noted in HPI Constitutional: denies: chills, fever Eyes: denies: eye pain, eye discharge, vision change ENT: congestion. denies: ear pain, throat pain Respiratory: cough, shortness of breath. denies: wheezing Cardiovascular: denies: chest pain, palpitations Endocrine: no symptoms reported Gastrointestinal: denies: abdominal pain, nausea, diarrhea Genitourinary: denies: urgency, dysuria, discharge Musculoskeletal: other (Left lower extremity pain and swelling). denies: back pain, joint swelling, arthralgia Skin: denies: rash, lesions Neurological: denies: headache, weakness, paresthesias, vertigo Psychiatric: denies: anxiety, depression Hematological/Lymphatic: denies: easy bleeding, easy bruising ED Past Medical Hx - Past Medical History Hx Hypertension: (high cholesterol) Hx GERD: Yes Hx Kidney Stones: Yes Additional medical history: MVP, high cholestrol - Surgical History Additional Surgical History: Hysterectomy. C section - Social History Smoking Status: Never Smoker - Medications Home Medications: Home Medications Medication Instructions Recorded Confirmed Last Taken Type atenoloL [Tenormin] 25 mg PO DAILY #30 tab 08/22/13 01/05/20 01/04/20 08:00 Rx Aspirin [Aspirin BABY CHEW TAB] 81 mg PO QDAY 07/16/15 01/05/20 01/04/20 08:00 History 325 hydroCHLOROthiazide [HCTZ] 25 mg PO QDAY 01/04/20 01/05/20 01/04/20 08:00 History Atorvastatin 40 mg PO QDAY 01/05/20 01/05/20 01/04/20 08:00 History Pantoprazole [Protonix] 40 mg PO QDAY #30 tablet 01/06/20 Unknown Rx Acetaminophen [Tylenol] 650 mg PO Q6H PRN #60 cap 04/01/22 Unknown Rx ED Physical Exam - General Limitations: No Limitations General appearance: alert, in no apparent distress - Head Head exam: Present: normocephalic, normal inspection - Eye Eye exam: Present: EOMI Pupils: Present: normal accommodation - ENT ENT exam: Present: mucous membranes moist - Neck Neck exam: Present: normal inspection, full ROM. Absent: tenderness, lymphadenopathy - Respiratory Respiratory exam: Present: normal lung sounds bilaterally. Absent: respiratory distress, wheezes, rales, rhonchi, stridor, chest wall tenderness - Cardiovascular Cardiovascular Exam: Present: regular rate, normal rhythm, normal heart sounds. Absent: systolic murmur, diastolic murmur, rubs, gallop - GI/Abdominal GI/Abdominal exam: Present: soft, normal bowel sounds. Absent: distended, tenderness, guarding, rebound, rigid, bruit, hernia - Rectal Rectal exam: Present: deferred - Extremities Exam Extremities exam: Present: normal inspection, full ROM, normal capillary refill. Absent: pedal edema, joint swelling, calf tenderness - Expanded Lower Extremity Exam Left Lower Leg exam: Present: full ROM, swelling. Absent: tenderness, abrasion, laceration, ecchymosis, crepidus, dislocation, erythema, palpable cord, Martha's sign Ankle exam: Present: full ROM. Absent: tenderness Foot/Toe exam: Absent: tenderness, swelling Neuro vascular tendon exam: Absent: pulse deficit, motor deficit, sensory deficit, tendon deficit Gait: Positive: observed and normal - Back Exam Back exam: Present: normal inspection, full ROM. Absent: CVA tenderness (R), CVA tenderness (L) - Neurological Exam Neurological exam: Present: alert, oriented X3, CN II-XII intact, normal gait, reflexes normal - Expanded Neurological Exam Expanded Patient oriented to: Present: person, place, time Speech: Present: fluid speech Motor strength exam: RUE: 5, LUE: 5, RLE: 5, LLE: 5 Best Eye Response ([place]): (4) open spontaneously Best Motor Response ([place]): (6) obeys commands Best Verbal Response ([place]): (5) oriented Griselda Total: 15 - Psychiatric Psychiatric exam: Present: normal affect, normal mood - Skin Skin exam: Present: warm, dry, intact, normal color. Absent: rash ED Medical Decision Making - Lab Data Result diagrams: 04/01/22 03:19 04/01/22 03:19 Labs 04/01/22 04/01/22 04/01/22 03:19 03:19 03:45 WBC 7.6 RBC 4.35 Hgb 11.4 Hct 34.8 MCV 80 MCH 26 L MCHC 33 RDW 13.7 Plt Count 310 Lymph % (Auto) 29.0 [place] % (Auto) 9.7 H Eos % (Auto) 0.8 Baso % (Auto) 1.0 Lymph # (Auto) 2.2 [place] # (Auto) 0.7 Eos # (Auto) 0.1 Baso # (Auto) 0.1 Seg Neutrophils % 59.5 Seg Neutrophils # 4.5 PT 12.2 INR 0.82 L APTT 28.1 Sodium 138 Potassium 3.8 Chloride 101.0 Carbon Dioxide 30 Anion Gap 11 BUN 10 Creatinine 0.6 Estimated GFR > 60 BUN/Creatinine Ratio 17 Glucose 98 Calcium 9.8 Total Bilirubin < 0.20 AST 13 ALT 20 Alkaline Phosphatase 129 Troponin T < 0.010 Total Protein 7.1 Albumin 4.4 Albumin/Globulin Ratio 1.6 Urine Color Urine Turbidity Urine pH Ur Specific [place] Urine Protein Urine Glucose (UA) Urine Ketones Urine Blood Urine Nitrite Urine Bilirubin Urine Urobilinogen Ur Leukocyte Esterase Urine WBC (Auto) Urine RBC (Auto) Urine Mucus 04/01/22 Unknown WBC RBC Hgb Hct MCV MCH MCHC RDW Plt Count Lymph % (Auto) [place] % (Auto) Eos % (Auto) Baso % (Auto) Lymph # (Auto) [place] # (Auto) Eos # (Auto) Baso # (Auto) Seg Neutrophils % Seg Neutrophils # PT INR APTT Sodium Potassium Chloride Carbon Dioxide Anion Gap BUN Creatinine Estimated GFR BUN/Creatinine Ratio Glucose Calcium Total Bilirubin AST ALT Alkaline Phosphatase Troponin T Total Protein Albumin Albumin/Globulin Ratio Urine Color Yellow Urine Turbidity Clear Urine pH 6.0 Ur Specific [place] 1.016 Urine Protein <15 mg/dl Urine Glucose (UA) Neg Urine Ketones Neg Urine Blood Sm Urine Nitrite Neg Urine Bilirubin Neg Urine Urobilinogen < 2.0 Ur Leukocyte Esterase Neg Urine WBC (Auto) 2.0 Urine RBC (Auto) 10.0 Urine Mucus Few - Radiology Data Radiology results: report reviewed, image reviewed XR chest routine 2V INDICATION / CLINICAL INFORMATION: flank pain ches pain. COMPARISON: 01/04/2020. FINDINGS: SUPPORT DEVICES: None. HEART /PULMONARY VASCULATURE: No significant abnormality. LUNGS / PLEURA: No significant pulmonary or pleural abnormality. No pneumothorax. ADDITIONAL FINDINGS: No significant additional findings. IMPRESSION: 1. No acute findings. Signer Name: George Chin MD Signed: 04/01/2022 3:45 AM Workstation Name: [id number] Transcribed By: PRETTY Dictated By: GEORGE CHIN MD Electronically Authenticated By: GEORGE CHIN MD Signed Date/Time: 04/01/22344 DD/ 3 TD/TT: DUPLEX DOPPLER LOWER EXTREMITY VEINS, LEFT INDICATION / CLINICAL INFORMATION: LLE pain swelling r/o DVT. TECHNIQUE: Duplex doppler imaging was performed through the veins of the left lower extremity using venous compression and other maneuvers. COMPARISON: None available. FINDINGS: LEFT COMMON FEMORAL VEIN: Negative. LEFT FEMORAL VEIN: Negative. LEFT POPLITEAL VEIN: Negative. LEFT CALF VEINS: Negative. ADDITIONAL FINDINGS: None. IMPRESSION: 1. No sonographic evidence for DVT in the left lower extremity. Signer Name: George Chin MD Signed: 04/01/2022 5:33 AM Workstation Name: [id number] Transcribed By: PRETTY Dictated By: GEORGE CHIN MD Electronically Authenticated By: GEORGE CHIN MD Signed Date/Time: 04/01/22532 DD/ 2 TD/TT: CT angio chest INDICATION / CLINICAL INFORMATION: SOB R/O PE. TECHNIQUE: Axial CT images were obtained through the chest after injection of 100 cc Omnipaque 350 IV contrast. 3 plane MIP and/or 3D reconstructions were produced. All CT scans at this location are performed using CT dose reduction for ALARA by means of automated exposure control. COMPARISON: Chest radiograph from same day. FINDINGS: PULMONARY ARTERIES: No central or segmental pulmonary embolus. THORACIC AORTA: No significant abnormality. HEART: No significant abnormality. CORONARY ARTERY CALCIFICATION: No significant calcification. LYMPHADENOPATHY: No significant thoracic lymphadenopathy. LUNGS/PLEURA: No acute airspace disease. No pleural effusion or pneumothorax. OTHER FINDINGS: None. UPPER ABDOMEN: No acute findings. SKELETAL SYSTEM: No acute osseous findings. IMPRESSION: No acute findings in the chest. No evidence of pulmonary embolism. Signer Name: George Chin MD Signed: 04/01/2022 6:59 AM Workstation Name: [id number] Transcribed By: PRETTY Dictated By: GEORGE CHIN MD Electronically Authenticated By: GEORGE CHIN MD Signed Date/Time: 04/01/22658 DD/ 4 TD/TT: - Medical Decision Making CXR: Normal no infiltrates no opacities, well score is 1, PERC score is 1, labs are normal, D-dimer 284, is , doppler lower extremity Doppler rule out DVT is negative, CTA: neg for PE, other labs normal and nonactionable, plan DC to self. Follow-up with Dr. Diego today. Patient is currently alert oriented x3 denies chest pain or shortness of breath dizziness or headache. Patient verbalized agreement and understanding of discharge plan. Patient DC'd in stable condition at this time. Critical care attestation.: If time is entered above; I have spent that time in minutes in the direct care of this critically ill patient, excluding procedure time. ED Disposition Clinical Impression: Shortness of breath Disposition: 01 HOME / SELF CARE / HOMELESS Is pt being admited?: No Does the pt Need Aspirin: No Condition: Stable Instructions: Shortness of Breath, Adult, [id number] Additional Instructions: follow up with Dr. Diego today. Return to emergency department should symptoms worsen. Prescriptions: Acetaminophen [Tylenol] 650 mg PO Q6H PRN #60 cap PRN Reason: pain Referrals: LASHAE DIEGO MD [Referring] - 3-5 Days Forms: Work/School Release Form(ED) Time of Disposition: 07:12
--- NOTE | 2022-04-01 05:38 | Vascular Lab Report ---
DUPLEX DOPPLER LOWER EXTREMITY VEINS, LEFT INDICATION / CLINICAL INFORMATION: LLE pain swelling r/o DVT. TECHNIQUE: Duplex doppler imaging was performed through the veins of the left lower extremity using venous compr ession and other maneuvers. COMPARISON: None available. FINDINGS: LEFT COMMON FEMORAL VEIN: Negative. LEFT FEMORAL VEIN: Negative. LEFT POPLITEAL VEIN: Negative. LEFT CALF VEINS: Negative. ADDITIONAL FINDINGS: None. IMPRESSION: 1. No sonographic evidence for DVT in the left lower extremity. Signer Name: Jai Fox MD Signed: 04/01/2022 5:33 AM Workstation Name: [id number]
--- NOTE | 2022-04-01 07:03 | Cat Scan Report ---
CT angio chest INDICATION / CLINICAL INFORMATION: SOB R/O PE. TECHNIQUE: Axial CT images were obtained through the chest after injection of 100 cc Omnipaque 350 IV contrast. 3 plane MIP and/or 3D reconstructions were produced. All CT scans at this location are per formed using CT dose reduction for ALARA by means of automated exposure control. COMPARISON: Chest radiograph from same day. FINDINGS: PULMONARY ARTERIES: No central or segmental pulmonary embolus. THORACIC AORTA: No significant abnormality. HEART: No significant abnormality. CORONARY ARTERY CALCIFICATION: No significant calcification. LYMPHADENOPATHY: No significant thoracic lymphadenopathy. LUNGS/PLEURA: No acute airspace disease. No pleural effusion or pneumothorax. OTHER FINDINGS: None. UPPER ABDOMEN: No acute findings. SKELETAL SYSTEM: No acute osseous findings. IMPRESSION: No acute findings in the chest. No evidence of pulmonary embolism. Signer Name: Jai Fox MD Signed: 04/01/2022 6:59 AM Workstation Name: [id number]
--- NOTE | 2022-04-01 10:13 | Electrocardiograph Report ---
[facility] [place] Test Date: 2022-03-31 Test Time: 21:21:20 Pat Name: JORGE HERNANDEZ Department: Room: Gender: F [employer]: : 1965 Requested By: SAMARA CINTRON Order Number: [id number] Reading MD: Eliot Garcia Measurements Intervals [place] Rate: 79 P: 68 WI: 135 QRS: 43 QRSD: 89 T: 16 QT: 384 QTc: 439 Interpretive Statements Sinus rhythm No previous ECG available for comparison Electronically Signed On 04-01-2022 10:12:43 EDT by Eliot Garcia
== END 2022-04-01 08:02 | disposition home or self-care (01) ==
LOC: ED 20:21
DX: R06.02 Shortness of breath (principal); K21.9 Gastro-esophageal reflux disease without esophagitis; N20.0 Calculus of kidney; Z88.0 Allergy status to penicillin; Z79.899 Other long term (current) drug therapy
CPT/HCPCS: 36415; 71046; 71275; 80053; 81001; 84484; 85025; 85379; 85610; 85730; 93005; 93971; 99284; Q9967